=== PATIENT | male | born 1995 | race Caucasian/White ===

== ENCOUNTER 2016-08-26 02:07 | Emergency (ER) | payer SELFPAY | END 2016-08-26 05:15 | disposition home or self-care (01) | LOC: ER1 02:07 | DX: J84.9 Interstitial pulmonary disease, unspecified (principal); F17.290 Nicotine dependence, other tobacco product, uncomplicated | CPT/HCPCS: 71020; 94664; 99284 ==

== ENCOUNTER 2016-09-05 13:00 | Emergency (ER) | payer SELFPAY | END 2016-09-05 15:10 | disposition home or self-care (01) | LOC: ER1 13:00 | DX: J18.9 Pneumonia, unspecified organism (principal) | CPT/HCPCS: 71020; 99283 ==